=== PATIENT | female | born 1995 | race Caucasian/White ===

== ENCOUNTER 2018-11-17 21:01 | Emergency (ER) | payer OTHER ==
[2018-11-17 21:24] VITALS: BP 122/77
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
== END 2018-11-17 21:46 | disposition home or self-care (01) ==
LOC: ED 21:01
DX: T59.891A Toxic effect of other specified gases, fumes and vapors, accidental (unintentional), initial encounter (principal); T26.82XA Corrosions of other specified parts of left eye and adnexa, initial encounter; T26.81XA Corrosions of other specified parts of right eye and adnexa, initial encounter; Y99.0 Civilian activity done for income or pay
CPT/HCPCS: 99282

== ENCOUNTER 2019-01-24 13:51 | Emergency (ER) | payer OTHER ==
--- NOTE | 2019-01-24 14:44 | ED Physician Documentation ---
PD HPI BACK PAIN - Stated complaint Stated Complaint: LOWER BACK PX - Chief complaint Chief Complaint: Back Pain - History obtained from History obtained from: Patient - History of Present Illness Timing - onset: How many weeks ago (1) Timing - details: Still present Location: Lower Quality: Pain Contributing factors: Trauma (fell onto buttocks) - Additional information Additional information: The patient is a 23-year-old [employer] female who presents with pain in her tailbone. 1 week ago she fell squarely onto her buttocks, after which she had pain so bad she was not able to sit. Her pain has gotten somewhat better since that time but continues to cause discomfort. It is worse when bending over. She and her family members are concerned because she has been sleepier than usual, and they are concerned there may be a connection. She has had no fever, denies headache, denies cough, denies abdominal pain, nausea or vomiting, and denies dysuria. She has been having pain with bowel movements. Review of Systems Constitutional: denies: Fever Nose: denies: Congestion Throat: denies: Sore throat Cardiac: denies: Chest pain / pressure Respiratory: denies: Dyspnea, Cough GI: denies: Abdominal Pain, Nausea, Vomiting : reports: Control. denies: Dysuria Skin: denies: Rash Musculoskeletal: reports: Back pain ("tailbone"). 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 HEENT: None Psych: None Musculoskeletal: None Derm: None - Past Surgical History Past Surgical History: No - Present Medications Home Medications: Ambulatory Orders Medication Instructions Recorded Confirmed No Known Home Medications 11/17/18 01/24/19 - Allergies Allergies/Adverse Reactions: Allergies Allergy/AdvReac Type Severity Reaction Status Date / Time No Known Drug Allergies Allergy Verified 01/24/19 14:02 - Social History Does the pt smoke?: No Smoking Status: Never smoker Does the pt drink ETOH?: Yes Does the pt have substance abuse?: No - Immunizations Immunizations are current?: Yes PD ED PE NORMAL - Vitals Vital signs reviewed: Yes (normal) - General General: Alert and oriented X 3, Well developed/nourished - HEENT HEENT: Atraumatic, Pharynx benign - Neck Neck: No bony TTP, No JVD - Cardiac Cardiac: RRR - Respiratory Respiratory: No respiratory distress, Clear bilaterally - Abdomen Abdomen: Soft, Non tender - Back Back: No CVA TTP, No spinal TTP, Other (Tenderness to palpation over the coccygeal segments.) - Derm Derm: No rash - Extremities Extremities: No edema, No calf tenderness / cord - Neuro Neuro: Alert and oriented X 3, No motor deficit, No sensory deficit Results - Vitals Vitals: Vital Signs - 24 hr 01/24/19 01/24/19 13:58 15:50 Temperature 36.6 C 36.3 C L Heart Rate 67 58 L Respiratory 18 18 Rate Blood Pressure 117/70 122/62 O2 Saturation 98 97 Oxygen O2 Source Room air - Rads (name of study) sacrum and coccyx Radiology: Prelim report reviewed, EMP read contemporaneously, See rad report (Normal plain film evaluation of the sacrum and coccyx.) PD MEDICAL DECISION MAKING - ED course Complexity details: reviewed results, re-evaluated patient, considered differential, d/w patient ED course: The patient's presentation is most consistent with coccygeal contusion. There is no bony abnormality detected on plain films of the sacrum and coccyx. I discussed with the patient the expected course of injury, symptomatic treatment and outpatient follow-up, as well as potentially worrisome signs or symptoms that should prompt reevaluation in the emergency department. Departure - Departure Disposition: 01 Home, Self Care Clinical Impression: Coccygeal contusion Qualifiers: Encounter type: initial encounter Qualified Code(s): S30.0XXA - Contusion of lower back and pelvis, initial encounter Condition: Stable Instructions: ED Contusion Sacrum Coccyx Follow-Up: [facility] [Provider Group] Comments: You can use ibuprofen, up to 800 mg 3 times daily if needed for pain. Let pain be your guide to activity level. Follow-up with your primary physician within 1 week. Call to schedule an appointment. Return to the emergency department if you develop increasing pain, numbness or weakness, or otherwise worsening symptoms. Forms: Activity restrictions
--- NOTE | 2019-01-24 15:20 | XRAY Report ---
Reason: coccygeal pain after falling. Procedure Date: 01/24/2019 Accession Number: [id number] / [id number] Procedure: XR - Sacrum/Coccyx CPT Code: FULL RESULT: EXAM: SACRUM AND COCCYX RADIOGRAPHY EXAM DATE: 01/24/2019 03:02 PM. HISTORY: Coccygeal pain after falling. COMPARISONS: None. TECHNIQUE: 2 views. FINDINGS: Alignment: Normal. The sacrum and coccyx are normally aligned. Bones: Normal. No fracture or bone lesion. Joints: Normal. The sacroiliac joints and visualized hips are within normal limits. Soft Tissues: Unremarkable. IMPRESSION: 1. Normal plain film evaluation of sacrum and coccyx . 2. No definite cause of patient's symptoms identified. If symptoms are persistent, and if indicated clinically, MRI could also be considered for further evaluation. [facility]
[2019-01-24 15:50] VITALS: BP 122/62
== END 2019-01-24 16:13 | disposition home or self-care (01) ==
LOC: ED 13:51
DX: S30.0XXA Contusion of lower back and pelvis, initial encounter (principal); W19.XXXA Unspecified fall, initial encounter
CPT/HCPCS: 72220; 99283

== ENCOUNTER 2020-10-08 14:09 | Emergency (ER) | payer OTHER ==
[2020-10-08 14:36] VITALS: BP 116/71
--- NOTE | 2020-10-08 14:55 | ED Physician Documentation ---
History of Present Illness - Stated complaint Stated Complaint: CONGESTION - Chief complaint Chief Complaint: Heent - History obtained from History obtained from: Patient - Additonal information Additional information: 24-year-old man woman presents with 2 weeks of sinus congestion and runny nose. Denies fevers, sore throat, cough, chest congestion. She does state that she wakes up from sleep short of breath due to her congestion and has an anxiety attack related to this. She does not take any medications for anxiety and does not see a doctor. Otherwise healthy. She denies Covid exposure. 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 HEENT: None Psych: None Musculoskeletal: None Derm: None - Past Surgical History Past Surgical History: No - Present Medications Home Medications: Ambulatory Orders Medication Instructions Recorded Confirmed hydrOXYzine pamoate [Hydroxyzine 50 mg PO QPM PRN 15 Days #15 10/08/20 Pamoate] capsule - Allergies Allergies/Adverse Reactions: Allergies Allergy/AdvReac Type Severity Reaction Status Date / Time No Known Drug Allergies Allergy Verified 10/08/20 14:19 - Social History Does the pt smoke?: No Smoking Status: Never smoker Does the pt drink ETOH?: Yes Does the pt have substance abuse?: No - Immunizations Immunizations are current?: Yes PD ED PE NORMAL - Vitals Vital signs reviewed: Yes - General General: Alert and oriented X 3 - HEENT HEENT: Atraumatic, PERRL, EOMI, Moist mucous membranes, Pharynx benign, Other (Sinus and nasal congestion noted. Nasal turbinates mildly inflamed.) - Neck Neck: Supple, no meningeal sign - Cardiac Cardiac: RRR - Respiratory Respiratory: No respiratory distress, Clear bilaterally - Abdomen Abdomen: Non tender, Non distended - Female Female : Deferred - Rectal Rectal: Deferred - Extremities Extremities: No edema - Neuro Neuro: Alert and oriented X 3 - Psych Psych: Normal mood, Normal affect Results - Vitals Vitals: Vital Signs - 24 hr 12/06/20 12/06/20 14:19 14:35 Temperature 36.5 C 36.5 C Heart Rate 76 88 Respiratory 16 18 Rate Blood Pressure 119/63 116/71 O2 Saturation 100 99 Oxygen O2 Source Room air PD MEDICAL DECISION MAKING - ED course Complexity details: d/w patient ED course: 24-year-old woman, previously healthy presents with sinus congestion, benign- appearing and likely viral in etiology. [facility]-up with [facility]. Strict return precautions given Departure - Departure Disposition: 01 Home, Self Care Clinical Impression: Sinus congestion, Anxiety Condition: Good Instructions: ED Sinusitis No Abx Prescriptions: hydrOXYzine pamoate [Hydroxyzine Pamoate] 50 mg PO QPM PRN 15 Days #15 capsule PRN Reason: Anxiety Comments: Follow-up with [facility]. Return for any new or worsening symptoms.
== END 2020-10-08 15:05 | disposition home or self-care (01) ==
LOC: ED 14:09
DX: R09.81 Nasal congestion (principal); F41.9 Anxiety disorder, unspecified
CPT/HCPCS: 99281; 99283

== ENCOUNTER 2020-11-06 | Emergency (ER) | payer OTHER | END 2020-11-06 21:03 | disposition left against medical advice (07) | DX: Z53.21 Procedure and treatment not carried out due to patient leaving prior to being seen by health care provider (principal) ==